=== PATIENT | male | born 1985 | race African-American/Black ===

== ENCOUNTER 2022-05-18 07:30 | Emergency (ER) | payer BC ==
[~2022-05-18] VITALS: Ht 177.8 cm; Wt 88.0 kg
[2022-05-18] MEDS ORDERED: ACETAMINOPHEN 325MG TABLET PO ONE (08:15)
[2022-05-18] MEDS ORDERED: PROM25TA13 MT (09:00)
[2022-05-18] MEDS ORDERED: ACET-2708 MT (09:00)
[2022-05-18 09:43] VITALS: BP 105/57
== END 2022-05-18 09:44 | disposition home or self-care (01) ==
LOC: ER 07:51
DX: R05.8 Other specified cough (principal); R07.89 Other chest pain; J45.909 Unspecified asthma, uncomplicated
CPT/HCPCS: 71045; 93005; 99283